=== PATIENT | female | born 1970 | race Caucasian/White ===

== ENCOUNTER 2017-03-18 17:47 | Emergency (ER) | payer MEDICAID | END 2017-03-18 19:29 | disposition home or self-care (01) | LOC: D.ER 17:47 | DX: S69.92XA Unspecified injury of left wrist, hand and finger(s), initial encounter (principal); X58.XXXA Exposure to other specified factors, initial encounter; Y93.89 Activity, other specified; Y92.029 Unspecified place in mobile home as the place of occurrence of the external cause ==

== ENCOUNTER 2019-04-09 13:40 | Emergency (ER) | payer MEDICAID ==
[~2019-04-09] VITALS: Ht 162.6 cm; Wt 60.9 kg
[2019-04-09 13:53] VITALS: Ht 162.6 cm; Wt 60.9 kg
[2019-04-09] MEDS ORDERED: VOLTAREN75 MG PO (16:29)
[2019-04-09 16:38] VITALS: BP 128/72
== END 2019-04-09 16:39 | disposition home or self-care (01) ==
LOC: D.ER 13:40
DX: M25.572 Pain in left ankle and joints of left foot (principal); S99.922A Unspecified injury of left foot, initial encounter; X58.XXXA Exposure to other specified factors, initial encounter